=== PATIENT | male | born 1980 | race Caucasian/White ===

== ENCOUNTER 2018-08-11 15:14 | Observation (INO) ==
[2018-08-11] MEDS ORDERED: Morphine Sulfate Inj 8 MG/ML Vial IV.PUSH ONE (19:09)
[2018-08-11] MEDS ORDERED: Sod Chloride 0.9% Inj 1,000 ML IV.SIG SCH ×2 (19:15→20:45)
--- NOTE | 2018-08-11 19:15 | ED ---
HPI General Chief complaint: Abdominal Pain Stated complaint: ABD Pain Time Seen by Provider: 08/11/18 19:05 History of Present Illness HPI narrative: Patient is a 37-year-old male presents emergency chills and right flank to right lower quadrant abdominal pain which was fairly sudden onset a few hours prior to arrival. Patient denies any nausea vomiting diarrhea const urinating or blood in the urine. States the pain has been fairly excruciating but has been waxing and waning. No history of kidney stones. No history of previous abdominal surgeries. Related Data Allergies Allergy/AdvReac Type Severity Reaction Status Date / Time No Known Allergies Allergy Verified 08/11/18 19:25 Review of Systems ROS: all other systems reviewed are negative [facility] Medical History Medical History Hypothyroid (Acute) Sleep apnea (Acute) Surgical History Surgical History No history of previous surgery (Acute) Social History Social History Smoking Status: Never smoker How Often Do You Have a Drink Containing Alcohol: Monthly or less Recent Travel in [facility] within the Last 8 Weeks: No Recent Out of Country Travel within the Last 8 Weeks: No Exam Narrative Exam Narrative: GENERAL: Well-developed well-nourished, uncomfortable but nontoxic appearance. SKIN: Focused skin assessment warm/dry. HEAD: Atraumatic. Normocephalic. EYES: Pupils equal and round. No scleral icterus. No injection or drainage. ENT: No nasal bleeding or discharge. Mucous membranes pink and moist. NECK: Trachea midline. No JVD. CARDIOVASCULAR: Regular rate and rhythm. No murmur appreciated. RESPIRATORY: No accessory muscle use. Clear to auscultation. Breath sounds equal bilaterally. GASTROINTESTINAL: Abdomen is fairly soft with some voluntary guarding particular in the right lower quadrant, no CVA tenderness bilaterally. Psoas and obturator signs are negative. MUSCULOSKELETAL: No obvious deformities. No clubbing. No cyanosis. No edema. NEUROLOGICAL: Awake and alert. No obvious cranial nerve deficits. Motor grossly within normal limits. Normal speech. PSYCHIATRIC: Appropriate mood and affect; insight and judgment normal. Course Reevaluation(s) Reevaluation #1: I reviewed the patient's history and exam. I personally examined the patient. I reviewed his laboratory tests including a CT scan. CT reveals a positive appendicitis. Patient is given a second liter normal saline and Zosyn 4.5 g IV. Patient is offered additional pain medication which she has declined at this time. He states his pain is manageable. I put a call out to Dr. Lobo the surgeon personnel arbitrator. Time: 21:51 Reevaluation #2: I discussed the case with Dr. Polanco who is agreed to admit the patient for observation for his acute appendicitis. Initial Documented Vital Signs Temperature 100 F H 08/11/18 16:50 Pulse Rate 107 H 08/11/18 16:50 Respiratory Rate 20 08/11/18 16:50 Blood Pressure 137/71 08/11/18 16:50 Pulse Oximetry 98 08/11/18 16:50 Last Documented Vital Signs Temperature 100 F H 08/11/18 16:50 Pulse Rate 107 H 08/11/18 16:50 Respiratory Rate 18 08/11/18 20:12 Blood Pressure 137/71 08/11/18 16:50 Pulse Oximetry 98 08/11/18 16:50 Medical Decision Making MDM Narrative Medical decision making narrative: 37-year-old male chief diagnostic considerations would be for an infected kidney stone or appendicitis. Patient will receive CT scan with IV contrast I think this to be adequate to see large kidney stones and hydronephrosis. The patient does give a history consistent with either diagnosis. Try to avoid p.o. contrast in this patient I think that would limit our ability to see kidney stones too much. Patient has morphine ordered, normal saline by bolus. Will give Tylenol for fever. Patient seen as part of rapid medical assessment in triage. They were handed off to the GENEVI[facility]E to follow the MDM as outlined above. If results are outside the patient's expected ED course then either myself or the other physicians will be available for consultation. Medical Screen Exam Complete: Yes Emergency Medical Condition: Yes Lab Data Result diagrams: 08/11/18 19:39 08/11/18 19:39 Lab Results 08/11/18 08/11/18 08/11/18 Range/Units 19:39 19:39 19:40 WBC 10.9 (4.0-11.0) th/mm3 RBC 5.08 (4.50-5.90) mil/mm3 Hgb 15.4 (13.0-17.0) gm/dL Hct 45.3 (39.0-51.0) % MCV 89.2 (80.0-100.0) fL MCH 30.3 (27.0-34.0) pg MCHC 33.9 (32.0-36.0) % RDW 13.7 (11.6-17.2) % Plt Count 288 (150-450) th/mm3 MPV 7.6 (7.0-11.0) fL Neut % (Auto) 85.0 H (16.0-70.0) % Lymph % (Auto) 8.9 L (9.0-44.0) % [place] % (Auto) 5.7 (0.0-8.0) % Eos % (Auto) 0.1 (0.0-4.0) % Baso % (Auto) 0.3 (0.0-2.0) % Neut # (Auto) 9.3 H (1.8-7.7) th/mm3 Lymph # (Auto) 1.0 (1.0-4.8) th/mm3 [place] # (Auto) 0.6 (0.0-0.9) th/mm3 Eos # (Auto) 0.0 (0.0-0.4) th/mm3 Baso # (Auto) 0.0 (0.0-0.2) th/mm3 WBC Differential . Differential Comment Auto diff final Sodium 135 L (136-145) meq/L Potassium 4.0 (3.5-5.1) meq/L Chloride 101 (98-107) meq/L Carbon Dioxide 26.7 (21.0-32.0) meq/L Anion Gap 7 (5-15) meq/L BUN 13 (7-18) mg/dL Creatinine 1.21 (0.60-1.30) mg/dL Estimated GFR 67 L (>89) mL/min Random Glucose 101 (74-106) mg/dL Calcium 8.5 (8.5-10.1) mg/dL Magnesium 1.9 (1.5-2.5) mg/dL Total Bilirubin 0.5 (0.2-1.0) mg/dL AST 47 H (15-37) U/L ALT 111 H (12-78) U/L Alkaline Phosphatase 83 (45-117) U/L Total Protein 7.7 (6.4-8.2) g/dL Albumin 3.9 (3.4-5.0) g/dL Lipase 174 (73-393) U/L Urine Color Yellow (Yellw/Straw) Urine Clarity Hazy H (Clear) Urine pH 7.0 (5.0-8.5) Ur Specific [place] 1.023 (1.002-1.035) Urine Protein Negative (Neg-Trace) mg/dL Urine Glucose (UA) Negative (Negative) mg/dL Urine Ketones Negative (Negative) mg/dL Urine Occult Blood Negative (Negative) Urine Nitrate Negative (Negative) Urine Bilirubin Negative (Negative) Urine Urobilinogen Less than 2 (Less than 2) mg/dL Ur Leukocyte Esterase Negative (Negative) Urine RBC 1 (0-3) /hpf Urine WBC 1 (0-5) /hpf Urine Mucus Few H (Occasional) /lpf Micro UA Comment Culture not ind Ur Microscopic Review Not Reportable Urine Culture Comments Culture not ind Imaging Data Radiologist's impression: Abdomen/Pelvis CT 08/11/18 19:09 CONCLUSION: 1. Appendicitis. 2. Hepatic steatosis. 3. Mild consolidation or atelectasis at the posterior lower lobes. Discharge Plan Discharge Disposition Patient Disposition: ED Admit(ED Internal Use Only) Discharge Condition Condition: Stable Discharge Details Diagnosis: Acute appendicitis Physicians Team ED Provider: Yfn Diaz ED Midlevel Provider: Phil Jc Primary Care Provider: Primary Care Physici,No Discharge Interventions Interventions: Vital Signs Last Done: 08/11/18 20:12 Status ED Status: With Doctor
[2018-08-11] MEDS ORDERED: Acetaminophen 325 MG Tablet PO ONE (19:23)
[2018-08-11 19:57] LABS: Baso % (Auto) 0.3 % (0.0-2.0); Eos % (Auto) 0.1 % (0.0-4.0); Hematocrit 45.3 % (39.0-51.0); Hemoglobin 15.4 gm/dL (13.0-17.0); Lymph % (Auto) 8.9 % (9.0-44.0); Mean Corpuscular HGB Conc 33.9 % (32.0-36.0); Mean Corpuscular Hemoglobin 30.3 pg (27.0-34.0); Mean Corpuscular Volume 89.2 fL (80.0-100.0); Mean Platelet Volume 7.6 fL (7.0-11.0); Mono # (Auto) 0.6 th/mm3 (0.0-0.9); Mono % (Auto) 5.7 % (0.0-8.0); Neut # (Auto) 9.3 th/mm3 (1.8-7.7); Platelet Count 288 th/mm3 (150-450); Red Blood Count 5.08 mil/mm3 (4.50-5.90); Red Cell Distribution Width 13.7 % (11.6-17.2); White Blood Count 10.9 th/mm3 (4.0-11.0)
[2018-08-11 20:02] LABS: Bilirubin,Urine Negative (Negative); Clarity,Urine Hazy (Clear); Color,Urine Yellow (Yellw/Straw); Glucose,Urine (UA) Negative (Negative); Leukocyte Esterase,Urine Negative (Negative); Mucus,Urine Few /lpf (Occasional); Nitrite,Urine Negative (Negative); Specific Gravity,Urine 1.023 (1.002-1.035)
[2018-08-11 20:26] LABS: Alanine Aminotransferase 111 U/L (12-78); Albumin 3.9 g/dL (3.4-5.0); Anion Gap 7 meq/L (5-15); Aspartate Aminotransferase 47 U/L (15-37); Blood Urea Nitrogen 13 mg/dL (7-18); Calcium 8.5 mg/dL (8.5-10.1); Carbon Dioxide 26.7 meq/L (21.0-32.0); Chloride 101 meq/L (98-107); Glomerular Filtration Rate 67 mL/min (>89); Glucose,Random 101 mg/dL (74-106); Lipase 174 U/L (73-393); Magnesium 1.9 mg/dL (1.5-2.5); Sodium 135 meq/L (136-145)
[2018-08-11 20:29] LABS: Alkaline Phosphatase 83 U/L (45-117); Total Protein 7.7 g/dL (6.4-8.2)
--- NOTE | 2018-08-11 20:29 | CT ---
EXAM DATE: 08/11/2018 8:23 PM EST AGE/SEX: 37 years / Male INDICATIONS: Right lower quadrant pain today. CLINICAL DATA: This is the patient's initial encounter. Patient reports that signs and symptoms have been present for 1 day and indicates a pain score of 8/10. MEDICAL/SURGICAL HISTORY: Hypothyroidism. None. ORAL CONTRAST: No oral contrast ingested. RADIATION DOSE: 21.32 CTDI (mGy) COMPARISON: No prior exams available for comparison. TECHNIQUE: Multiple contiguous axial images were obtained through the abdomen and pelvis following b olus infusion of 97 ml Omnipaque 350 (iohexol) nonionic water-soluble contrast as a single exam dos e. No oral contrast ingested. Using automated exposure control and adjustment of the mA and/or kV ac cording to patient size, radiation dose was kept as low as reasonably achievable to obtain optimal di agnostic quality images. DICOM format image data is available electronically for review and comparis on. FINDINGS: Lower Lungs: There is increased density at the posterior lower lobes bilaterally. Liver: There is diffuse decreased attenuation to the liver. No focal hepatic lesions are seen. The ga llbladder is unremarkable. Spleen: Homogeneous density without enlargement. Pancreas: Unremarkable without mass or calcification. Kidneys: Normal in size and shape. No evidence of mass or hydronephrosis. Adrenal Glands: Unremarkable. Aorta: The aorta and proximal iliac vessels are grossly unremarkable without aneurysmal dilation. Bowel/Mesentery: The appendix is thickened measuring 1.2 cm. There appears to be a 0.7 cm appendicol ith near the base of the appendix. There is mild inflammatory change surrounding the appendix. Abdominal Wall: There is a minimal umbilical hernia containing a small amount of mesenteric fat. Retroperitoneum: No evidence of adenopathy in the retrocrural, para-aortic, or deep pelvic regions. Bladder: Contours are smooth. Reproductive Organs: No abnormal masses or calcifications seen. Inguinal: There is prominent fat seen in the left inguinal canal. Bony Structures: There is degenerative change in the lower lumbar spine. CONCLUSION: 1. Appendicitis. 2. Hepatic steatosis. 3. Mild consolidation or atelectasis at the posterior lower lobes. Electronically signed by: Justin Alfaro MD Board Certified Radiologist 08/11/2018 8:28 PM EST
[2018-08-11] MEDS ORDERED: Piperacil/Tazo 4.5 GM Premix 4.5 GM/100 ML BAG IV.SIG SCH (20:45)
[2018-08-11] MEDS ORDERED: Morphine Inj 4 MG/ML Vial IV.PUSH PRN (22:23)
[2018-08-11] MEDS: Sod Chloride 0.9% Inj 1,000 ML IV.CONT SCH (23:06)
--- NOTE | 2018-08-11 23:20 | MH ---
cc: Efrain Sheldon MD DATE OF ADMISSION: 08/11/2018 CHIEF COMPLAINT: Acute appendicitis. HISTORY OF PRESENT ILLNESS: The patient is a 37-year-old male who presented to the emergency department with several hours of increasing right lower quadrant pain. The patient states he never had this pain prior and the pain continued to worsen. The pain is not associated with any activity other than pressing on his abdomen. It is relieved with pain medicine. It is not associated with diarrhea, constipation, nausea, vomiting, fevers, chills, or night sweats. The patient underwent a workup in the emergency department that returned a CT scan that was suspicious for acute appendicitis, early without rupture. General surgery was asked to evaluate and admit the patient. REVIEW OF SYSTEMS: A 12-point review of systems was conducted with the patient. It is negative except for the pertinent positives mentioned above in history of present illness. PAST MEDICAL HISTORY: Sleep apnea and hypothyroidism. PAST SURGICAL HISTORY: None. ALLERGIES: NO KNOWN DRUG ALLERGIES. HOME MEDICATIONS: None. SOCIAL HISTORY: The patient denies alcohol, tobacco, or illicit drug use. FAMILY HISTORY: Reviewed and noncontributory. PHYSICAL EXAMINATION: VITAL SIGNS: Temperature 100 degrees, pulse 107, respiratory rate 20, blood pressure 137/71, O2 saturation 98%. GENERAL: The patient is a well-developed, well-nourished, male in no acute distress. HEENT: Head is normocephalic, atraumatic. Pupils are round and reactive and accommodative to light. Sclerae are anicteric. Oral cavity is clear. Airway is patent. NECK: Soft, supple. No JVD. No lymphadenopathy. Trachea is midline. CHEST: Wall nontender to palpation. Breathing is nonlabored. Breath sounds are clear bilaterally. HEART: Regular rate and rhythm. No murmurs. ABDOMEN: Soft, tender to palpation in the right lower quadrant without focal peritonitis without rebound tenderness. No surgical scars. No hernias. No organomegaly. No ascites. Normal bowel sounds. EXTREMITIES: No clubbing, cyanosis or edema. BACK: No CVA tenderness. NEUROLOGIC: The patient is alert and oriented x3. Nonfocal peripheral exam. Cranial nerves 2-12 are grossly intact. Mood, judgment, and insight are intact. LABORATORY DATA: White blood cell count is 10. IMAGING: Concerning for early appendicitis. ASSESSMENT AND PLAN: The patient is a 37-year-old male with acute appendicitis. I discussed treatment options with the patient ,including laparoscopic appendectomy versus nonoperative management. I discussed the risks, benefits, and alternatives to laparoscopic appendectomy. He would like to proceed to the operating room for surgery. We will post the patient to the operating room and proceed for this urgent case when the operating room is available later this evening or early in the morning as the operating room was busy due to week. Efrain Sheldon MD AWG/eb/rr , 10:29 PM , 10:38 PM
[2018-08-12] MEDS: Piperacil/Tazo 3.375 GM Premix 3.375 GM/50 ML PIGGYBACK IV.SIG SCH ×3 (05:26→16:58)
[2018-08-12] MEDS: Sod Chloride 0.9% Inj 1,000 ML IV.CONT SCH ×3 (05:53→23:02)
[2018-08-12] MEDS ORDERED: Metoprolol Tartrate 25 MG Tablet PO ONE (09:13)
[2018-08-12] MEDS ORDERED: Chlorhexidine Gluconate 2% 1 Pack (2 Cloths) TOPICAL ONE (09:13)
[2018-08-12] MEDS ORDERED: Sodium Chlor 0.9% Inj 500 ML IV.SIG SCH (10:00)
[2018-08-12] MEDS ORDERED: Acetaminophen 325 MG Tablet PO ONE (10:45)
[2018-08-12] MEDS ORDERED: Bupivacaine/Epinephrine Inj 0.25% 50 ML Vial ONE (19:48)
[2018-08-12] MEDS ORDERED: Lidocaine PF 1% Inj 5 ML Syringe OTHER ONE (20:09)
[2018-08-12] MEDS ORDERED: Neostigmine Inj 5 MG/5 ML Syringe IV.PUSH ONE (20:09)
[2018-08-12] MEDS ORDERED: Glycopyrrolate Inj 1 MG/5 ML Syringe IV.PUSH ONE (20:09)
--- NOTE | 2018-08-12 21:21 | P.OP ---
- Preoperative Diagnosis (1) Acute appendicitis - Postoperative Diagnosis (1) Acute appendicitis Procedure: lap appy Anesthesia: GETA Surgeon: Kane Garcia MD Pathology: other (appendix) Operation and Findings: inflamed locally perf appy
[2018-08-12] MEDS ORDERED: fentaNYL Citrate Inj 100 MCG/2 ML Ampul ONE (21:55)
--- NOTE | 2018-08-12 22:38 | MP ---
cc: Kane Garcia MD DATE OF OPERATION: 08/12/2018 PREOPERATIVE DIAGNOSIS: Acute appendicitis. POSTOPERATIVE DIAGNOSIS: Acute appendicitis, necrotic appendix. SURGEON: Kane Garcia MD SURGERY PERFORMED: Laparoscopic appendectomy. ANESTHESIA: GETA. IV FLUIDS: See anesthesia sheet. ESTIMATED BLOOD LOSS: 25 mL. DRAINS: A round Ken drain placed in the right lower quadrant. SPECIMENS: Appendix. FINDINGS: Acutely inflamed acute appendicitis, retrocecal, with contained perforation, significant adhesion, good hemostasis. INDICATION: The patient is a 37-year-old male who presents with acute onset of right lower quadrant abdominal pain. The patient states the pain woke him up from sleep and continued to get worse. The patient came to the emergency department for further evaluation including CT scan, showing acute appendicitis, therefore, decision for operative intervention. DETAILS OF PROCEDURE: The patient was taken to the operating suite, placed in supine position, prepped and draped in the usual sterile fashion after induction of general endotracheal anesthesia. Brief timeout was done to determine the correct patient, procedure, surgical site. We were all in agreement with this. Attention was first directed to the umbilicus where local anesthetic was injected. Yogi incision was made. The Veress needle was used to enter the abdomen. Saline drop test confirmed intra-abdominal placement. Abdomen was insufflated to 15 mm pneumoperitoneum. On cursory inspection, no evidence of injury. Three other ports were placed, including a left lower quadrant 12 mm, followed by a suprapubic 5 mm port. The appendix was noted to be in a very retrocecal location with a tense adhesion and purulence. Another port was placed in the right upper quadrant. The patient was placed in Trendelenburg, airplaned to the left. The cecum was retracted. The appendix was dissected away from the cecal wall. Again, intense inflammatory response with some contained abscess formation. The base of the appendix was mobilized. A small window was made in the mesoappendix. An Endo-GURPREET 35 was used to transect the base of the medial base of the appendix. The mesoappendix was transected with a Harmonic scalpel. Appendix was placed in the appendiceal Endo Catch bag and removed from the left lower quadrant port. Hemostasis was obtained. A small piece of SNoW was placed in the right lower quadrant. PATRICIA 10-Russian round Ken drain was placed and pulled through the suprapubic incision site, 3-0 nylon used to secure the drain in place. The left lower quadrant 12 mm incision was closed with 0 Vicryl. 4-0 Monocryl done to all subcuticular incisions. After removal of the pneumoperitoneum. The patient tolerated the procedure well and there were no intraoperative complications. All lap and instrument counts were correct at the end of the procedure. The patient was extubated and taken to the PACU. MD CATARINA Tarango/charles , 09:39 PM , 09:47 PM
[2018-08-13] MEDS: Piperacil/Tazo 3.375 GM Premix 3.375 GM/50 ML PIGGYBACK IV.SIG SCH ×3 (05:56→10:29)
--- NOTE | 2018-08-13 07:52 | P.PNGS ---
Subjective Patient reports: no new complaints, feels better Physical Exam Vital signs: Vital Signs 08/12/18 08:00 08/12/18 11:15 08/12/18 12:34 Temperature 100.3 F H 98.5 F 99 F Pulse Rate 103 H 97 H Respiratory Rate 16 16 Blood Pressure 131/78 135/70 Pulse Oximetry 95 94 L 08/12/18 14:16 08/12/18 16:16 08/12/18 20:00 Temperature 98.5 F 99.8 F H 98.6 F Pulse Rate 93 H 55 L Respiratory Rate 16 17 Blood Pressure 139/84 120/61 Pulse Oximetry 98 97 08/12/18 21:44 08/12/18 22:00 08/12/18 22:15 Temperature 99.9 F H Pulse Rate 113 H 108 H 116 H Respiratory Rate 22 18 18 Blood Pressure 142/70 H 148/70 H 139/63 Pulse Oximetry 96 95 95 08/12/18 22:30 08/12/18 22:45 08/13/18 02:01 Temperature 98.5 F 98.4 F Pulse Rate 105 H 108 H 100 H Respiratory Rate 16 17 Blood Pressure 132/63 134/66 142/76 H Pulse Oximetry 92 L 96 94 L Intake & Output 08/12/18 08/13/18 08/13/18 18:59 06:59 18:59 Intake Total 1100 / 1100 1999 / 1999 Output Total 30 / 30 Balance 1100 / 1100 1969 / 1969 Intake: IV 1100 / 1100 600 / 600 NS Inj 1,000 ML @ 125 mls/hr IV 1000 / 1000 600 / 600 .CONT .Q8H [facility] Rx#:[id number] Zosyn 3.375 GM Premix 3.375 gm 100 / 100 In 50 ml @ 100 mls/hr IV.SIG Q6H [facility] Rx#:[id number] Anesthesia Amount 1400 / 1400 Output: Estimated Blood Loss 30 / 30 Other: # Voids 5 - Routine Abdominal Exam Present: soft (incisional tenderness, rishabh serosang) Results - Labs 08/11/18 19:39 08/11/18 19:39 - Imaging Imaging: ITS Impressions Abdomen/Pelvis CT 08/11/18 19:09 CONCLUSION: 1. Appendicitis. 2. Hepatic steatosis. 3. Mild consolidation or atelectasis at the posterior lower lobes. Assessment and Plan - Plan POD 1 Appy plan reg soft diet for lunch pain control abx rishabh sxn possible d/c planning later today
[2018-08-13] MEDS ORDERED: Ketorolac Inj 30 MG/ML (IVP) Vial IV.PUSH SCH (08:00)
[2018-08-13] MEDS: Sod Chloride 0.9% Inj 1,000 ML IV.CONT SCH (08:23)
[2018-08-13 09:12] VITALS: RESP 20
[2018-08-13 12:13] LABS: Baso % (Auto) 0.2 % (0.0-2.0); Hematocrit 39.5 % (39.0-51.0); Hemoglobin 13.4 gm/dL (13.0-17.0); Lymph # (Auto) 1.5 th/mm3 (1.0-4.8); Lymph % (Auto) 12.3 % (9.0-44.0); Mean Corpuscular HGB Conc 33.9 % (32.0-36.0); Mean Corpuscular Hemoglobin 30.3 pg (27.0-34.0); Mean Corpuscular Volume 89.5 fL (80.0-100.0); Mean Platelet Volume 7.3 fL (7.0-11.0); Mono # (Auto) 0.8 th/mm3 (0.0-0.9); Mono % (Auto) 6.6 % (0.0-8.0); Neut # (Auto) 9.6 th/mm3 (1.8-7.7); Neut % (Auto) 80.9 % (16.0-70.0); Platelet Count 245 th/mm3 (150-450); Red Blood Count 4.41 mil/mm3 (4.50-5.90); Red Cell Distribution Width 13.4 % (11.6-17.2); White Blood Count 11.8 th/mm3 (4.0-11.0)
[2018-08-13 12:33] LABS: Calcium 7.9 mg/dL (8.5-10.1); Carbon Dioxide 25.3 meq/L (21.0-32.0); Potassium 3.9 meq/L (3.5-5.1)
[2018-08-13 13:28] VITALS: BP 118/79; PULSE 87; TEMP 98; O2SAT 96
--- NOTE | 2018-08-13 15:29 | P.DS ---
Date of admission: 08/11/18 21:55 Primary care physician: No Primary Care Physician Anticipated date of discharge: 08/13/18 Brief History from admission: 37 year old s/p laparoscopic appendectomy DS: Medications - Discharge Medications Prescriptions: oxycodone-acetaminophen 1 tab PO Q4H PRN #20 tab PRN Reason: acute post op pain exception DS: Summary Hospital Course: 37 year old male s/p laparoscopic appendectomy. The patient's pain was controlled using oral pain medications. He was able to tolerate a regular diet. He will DC with PATRICIA drain in place and follow up in the office. - Time Spent with Patient Total time spent providing and/or coordinating discharge services: Less than 30 minutes - Quality: VTE Deep Vein Thrombosis/Pulmonary Embolism Present on Admission: No Exam Vital signs: Vital Signs 08/12/18 16:16 08/12/18 20:00 08/12/18 21:44 Temperature 99.8 F H 98.6 F 99.9 F H Pulse Rate 93 H 55 L 113 H Respiratory Rate 16 17 22 Blood Pressure 139/84 120/61 142/70 H Pulse Oximetry 98 97 96 08/12/18 22:00 08/12/18 22:15 08/12/18 22:30 Temperature Pulse Rate 108 H 116 H 105 H Respiratory Rate 18 18 16 Blood Pressure 148/70 H 139/63 132/63 Pulse Oximetry 95 95 92 L 08/12/18 22:45 08/13/18 02:01 08/13/18 08:00 Temperature 98.5 F 98.4 F 99.0 F Pulse Rate 108 H 100 H 94 H Respiratory Rate 17 20 Blood Pressure 134/66 142/76 H 143/72 H Pulse Oximetry 96 94 L 94 L 08/13/18 12:00 Temperature 98.0 F Pulse Rate 87 Respiratory Rate 20 Blood Pressure 118/79 Pulse Oximetry 96 Intake & Output 08/12/18 08/13/18 08/13/18 18:59 06:59 18:59 Intake Total 1100 / 1100 2150 / 2150 1050 / 1050 Output Total 30 / 30 65 / 65 Balance 1100 / 1100 2120 / 2120 985 / 985 Intake: IV 1100 / 1100 750 / 750 1050 / 1050 NS Inj 1,000 ML @ 125 mls/hr IV 1000 / 1000 600 / 600 1000 / 1000 .CONT .Q8H ROSANGELA Rx#:[id number] Ofirmev Inj 1,000 mg In 100 ml 100 / 100 @ 0 mls/hr IV.SIG .STK-MED ONE Rx#:[id number] Zosyn 3.375 GM Premix 3.375 gm 100 / 100 50 / 50 50 / 50 In 50 ml @ 100 mls/hr IV.SIG Q6H [facility] Rx#:[id number] Anesthesia Amount 1400 / 1400 Output: Estimated Blood Loss 30 / 30 Wound Drainage 65 / 65 # 1 Lower Abdomen PATRICIA Drain 65 / 65 Other: # Voids 5 Narrative: Alert and awake Abd: soft; minimally tender; PATRICIA with in place with serous drainage Results Procedures completed during hospitalization: Laparoscopic appendectomy Pending studies at discharge: Pending at discharge 08/12/18 08:28 Surgical [PTH] Routine Labs on day of discharge: Labs from last 24 hours 08/13/18 08/13/18 11:53 11:33 WBC 11.8 H RBC 4.41 L Hgb 13.4 D Hct 39.5 MCV 89.5 MCH 30.3 MCHC 33.9 RDW 13.4 Plt Count 245 MPV 7.3 Neut % (Auto) 80.9 H Lymph % (Auto) 12.3 [place] % (Auto) 6.6 Eos % (Auto) 0.0 Baso % (Auto) 0.2 Neut # (Auto) 9.6 H Lymph # (Auto) 1.5 [place] # (Auto) 0.8 Eos # (Auto) 0.0 Baso # (Auto) 0.0 WBC Differential . Differential Comment Auto diff final Sodium 140 Potassium 3.9 Chloride 108 H Carbon Dioxide 25.3 Anion Gap 7 BUN 14 Creatinine 1.07 Estimated GFR 78 L Random Glucose 146 H Calcium 7.9 L - Impressions ITS Impressions Abdomen/Pelvis CT 08/11/18 19:09 CONCLUSION: 1. Appendicitis. 2. Hepatic steatosis. 3. Mild consolidation or atelectasis at the posterior lower lobes. Discharge Plan - Discharge Disposition Patient Disposition: Discharge Home - Discharge Condition Condition: Stable - Discharge Order Discharge Orders: Discharge Order (Routine); Ordered 08/13/18 Ordered By: Stefanie Mejia - Discharge Details Anticipated Discharge Date: 08/13/18 Discharge Comment: rx on chart - Physicians Team Primary Care Provider: Primary Care Jose,Talia Attending Provider: Efrain Sheldon
== END 2018-08-13 16:26 | disposition home or self-care (01) ==
LOC: NEPB 15:14 → NEDA 15:14 → NEPFCDU 23:46
PROVIDERS: ADMIT Surgery; ATTEND Surgery
PROC: LAPAPPY (ICD-10-PCS; 2018-08-12 20:09)
CPT/HCPCS: 74177; 80048; 80053; 81001; 83690; 83735; 85025; 88304; 90761; 90765; 90775; 96361; 96365; 96366; 96375; 96376; 99285; G0378; J0131; J1100; J1885; J2250; J2270; J2405; J2543; J2704; J2710; J3010; J7030; J7120; Q9967